=== PATIENT | female | born 1990 | race Two or more races ===

== ENCOUNTER → 2017-10-28 12:04 | Outpatient (CLI) | payer OTHER | END | disposition home or self-care (01) | LOC: LAB 12:04 | DX: Z00.00 Encounter for general adult medical examination without abnormal findings (principal) ==

== ENCOUNTER → 2017-10-28 | Outpatient (CLI) | payer OTHER ==
[~2017-10-28] VITALS: Ht 152.4 cm; Wt 77.1 kg
[~2017-10-28] MED LIST: BUCALSEP SPRAY30 ML MM; FIORICET 50-321 EACH PO; FIORICET PO; LEVAQUIN500 MG PO; MULTIVITAMINS1 EAC6 PO; OMEGA 3 1,0001 EACH; OMEPRAZOLE10 MG; URIN D.S. TABLE1 TAB PO
== END | disposition home or self-care (01) ==
LOC: PPHC 09:09
DX: H60.8X2 Other otitis externa, left ear (principal)

== ENCOUNTER → 2017-12-04 | Outpatient (CLI) | payer OTHER ==
[~2017-12-04] VITALS: Ht 152.4 cm; Wt 79.8 kg
== END | disposition home or self-care (01) ==
LOC: PPHC 08:16
DX: Z01.89 Encounter for other specified special examinations (principal)

== ENCOUNTER 2017-12-05 07:22 | Emergency (ER) | payer OTHER ==
[~2017-12-05] VITALS: Ht 167.6 cm; Wt 79.4 kg
== END 2017-12-05 09:28 | disposition home or self-care (01) ==
LOC: ER 07:22
DX: H92.02 Otalgia, left ear (principal); H66.92 Otitis media, unspecified, left ear

== ENCOUNTER 2017-12-06 08:29 | Outpatient (CLI) | payer OTHER ==
[~2017-12-06] VITALS: Ht 167.6 cm; Wt 79.4 kg
== END 2017-12-06 08:55 | disposition home or self-care (01) ==
LOC: OFIC 805 08:29
DX: H60.8X2 Other otitis externa, left ear (principal); H61.22 Impacted cerumen, left ear

== ENCOUNTER → 2017-12-06 12:08 | Outpatient (CLI) | payer OTHER | END | disposition home or self-care (01) | LOC: LAB 12:08 | DX: H60.92 Unspecified otitis externa, left ear (principal) ==

== ENCOUNTER 2017-12-13 08:20 | Outpatient (CLI) | payer OTHER ==
[~2017-12-13] VITALS: Ht 152.4 cm; Wt 79.4 kg
== END 2017-12-13 08:35 | disposition home or self-care (01) ==
LOC: OFIC 805 08:20
DX: H60.8X3 Other otitis externa, bilateral (principal)

== ENCOUNTER → 2018-01-03 | Outpatient (CLI) | payer OTHER ==
[~2018-01-03] VITALS: Ht 152.4 cm; Wt 79.4 kg
== END | disposition home or self-care (01) ==
LOC: OFIC 805 08:15
DX: H60.8X2 Other otitis externa, left ear (principal)